=== PATIENT | female | born 1930 | race Caucasian/White ===

== ENCOUNTER 2016-09-23 19:44 | Emergency (ER) | payer MEDICARE, BC ==
[2016-09-23 19:59] VITALS: RESP 20; TEMP 97.6
[2016-09-23 20:15] VITALS: PULSE 97; O2SAT 95
[2016-09-23 20:16] VITALS: BP 126/72
[2016-09-23] MEDS ORDERED: HYDROMORPHONE HCL 2 MG/ML 1 ML SOL IM ONE (20:42)
[2016-09-23] MEDS ORDERED: DIAZEPAM 5MG/ML SOL IM ONE (20:42)
[2016-09-23] MEDS ORDERED: DIAZEPAM 5MG/ML SOL ONE (20:45)
[2016-09-23] MEDS ORDERED: HYDROMORPHONE HCL 2 MG/ML 1 ML SOL ONE (20:45)
[2016-09-23] MEDS ORDERED: ONDANSETRON 4 MG ODT BU ONE (20:56)
[2016-09-23] MEDS ORDERED: ONDANSETRON 4 MG ODT ONE (20:57)
== END 2016-09-23 21:36 | disposition home or self-care (01) | DRG 74 ==
LOC: ED 19:44
DX: G57.02 Lesion of sciatic nerve, left lower limb (principal)
CPT/HCPCS: 96372; 99283; J1170; J3360

== ENCOUNTER 2018-10-12 20:30 | Emergency (ER) | payer MEDICARE, BC ==
[2018-10-12 20:43] VITALS: TEMP 99.1
[2018-10-12 21:46] VITALS: BP 135/66; PULSE 83; RESP 20; O2SAT 97
== END 2018-10-12 21:35 | disposition home or self-care (01) | DRG 69 ==
LOC: ED 20:30
DX: G45.9 Transient cerebral ischemic attack, unspecified (principal); R29.810 Facial weakness; E03.9 Hypothyroidism, unspecified; R40.2362 Coma scale, best motor response, obeys commands, at arrival to emergency department; R40.2142 Coma scale, eyes open, spontaneous, at arrival to emergency department; R40.2252 Coma scale, best verbal response, oriented, at arrival to emergency department; I10 Essential (primary) hypertension; E78.5 Hyperlipidemia, unspecified
CPT/HCPCS: 70450; 82962; 93005; 99284

== ENCOUNTER 2018-10-14 09:31 | Observation (INO) | payer MEDICARE, BC ==
[2018-10-14 09:50] LABS: BASOPHILS % (AUTO) 1 % (0-3); EOSINOPHILS % (AUTO) 2 % (0-9); HEMATOCRIT 33 % (35-47); HEMOGLOBIN 10.9 gm/dl (12.0-15.5); LYMPHOCYTES % (AUTO) 12.9 % (10-50); MEAN CORPUSCULAR HEMOGLOBIN 29.9 pg (27.0-32.0); MEAN CORPUSCULAR HGB CONC 33.2 gm/dl (32.0-36.0); MEAN CORPUSCULAR VOLUME 90 fL (81-99); MONOCYTES % (AUTO) 7.6 % (0-12); NEUTROPHILS % (AUTO) 76.4 % (37-80)
[2018-10-14 09:56] LABS: INR 0.96 (0.86-1.12)
[2018-10-14 10:05] LABS: CALCIUM 9.3 mg/dl (8.5-10.1); CARBON DIOXIDE 22.5 mEq/L (21-32); CREATININE 1.49 mg/dl (0.60-1.00); POTASSIUM 3.9 mMol/L (3.5-5.1)
[2018-10-14 10:06] LABS: TROP I 1.071 ng/ml (0.000-0.056)
[2018-10-14] MEDS ORDERED: SODIUM CHLORIDE 0.9% 1000ML 1,000 ML IV ONE (10:46)
[2018-10-14] MEDS ORDERED: LORATADINE 10 MG TAB PO PRN (16:54)
[2018-10-14] MEDS ORDERED: SODIUM CHLORIDE 0.9% 1000ML 1,000 ML IV SCH (17:00)
[2018-10-14 19:39] VITALS: O2SAT 96
[2018-10-14] MEDS: POTASSIUM CHLORIDE 10 MEQ TER PO SCH (20:15)
[2018-10-14] MEDS: TICAGRELOR 90 MG TAB PO SCH (20:16)
[2018-10-14] MEDS ORDERED: D3 PO SCH (21:00)
[2018-10-14] MEDS ORDERED: CALCIUM PO SCH (21:00)
[2018-10-15] MEDS ORDERED: LEVOTHYROXINE SODIUM 50 MCG TAB PO SCH (07:00)
[2018-10-15] MEDS ORDERED: OMEPRAZOLE 40 MG ECC PO SCH (07:00)
[2018-10-15] MEDS: PANTOPRAZOLE SODIUM 40 MG ECT PO SCH ×2 (07:28→10:41)
[2018-10-15 07:55] LABS: CALCIUM 8.5 mg/dl (8.5-10.1); CARBON DIOXIDE 24.5 mEq/L (21-32); CREATININE 1.21 mg/dl (0.60-1.00); POTASSIUM 3.5 mMol/L (3.5-5.1)
[2018-10-15] MEDS ORDERED: CALCIUM PO SCH (09:00)
[2018-10-15] MEDS ORDERED: LOSARTAN POTASSIUM 50 MG TAB PO SCH (09:00)
[2018-10-15] MEDS ORDERED: CHLORTHALIDONE 25 MG PO SCH (09:00)
[2018-10-15] MEDS ORDERED: METOPROLOL SUCCINATE 50 MG ER TAB PO SCH (09:00)
[2018-10-15] MEDS ORDERED: LUTEIN 20 MG PO SCH (09:00)
[2018-10-15] MEDS ORDERED: D3 PO SCH (09:00)
[2018-10-15] MEDS ORDERED: ASPIRIN 325 MG TAB PO SCH (09:00)
[2018-10-15] MEDS: FIBER PO SCH (10:40)
[2018-10-15] MEDS: LACTOBACILLUS ACIDOPHILUS PO SCH (10:41)
[2018-10-15] MEDS: TICAGRELOR 90 MG TAB PO SCH (10:41)
[2018-10-15] MEDS: POTASSIUM CHLORIDE 10 MEQ TER PO SCH (10:41)
[2018-10-15 10:42] VITALS: BP 144/86; PULSE 90; RESP 14
[2018-10-15 10:43] VITALS: TEMP 98.6
== END 2018-10-15 11:15 | disposition home or self-care (01) | DRG 69 ==
LOC: ED 09:31 → ACUTE CARE 16:09 → UNDOADMOB 16:09 → ACUTE CARE 16:25
PROVIDERS: ADMIT Family Medicine; ATTEND Family Medicine
DX: G45.9 Transient cerebral ischemic attack, unspecified (principal); G81.91 Hemiplegia, unspecified affecting right dominant side; N17.9 Acute kidney failure, unspecified; R29.810 Facial weakness; I67.9 Cerebrovascular disease, unspecified; E03.9 Hypothyroidism, unspecified; R40.2362 Coma scale, best motor response, obeys commands, at arrival to emergency department; R40.2142 Coma scale, eyes open, spontaneous, at arrival to emergency department; R40.2252 Coma scale, best verbal response, oriented, at arrival to emergency department
CPT/HCPCS: 36415; 70450; 70496; 70498; 80048; 84484; 85025; 85610; 93005; 96365; 96366; 99217; 99219; 99291; Q9967; A9270-GY